=== PATIENT | female | born 1955 | race Caucasian/White ===

== ENCOUNTER 2022-01-19 13:20 | Inpatient (IN) | payer MEDICARE, OTHER ==
[~2022-01-19] VITALS: Ht 162.6 cm; Wt 46.3 kg
[2022-01-19 13:40] LABS: *BILIRUBIN,URIN NEGATIVE (NEGATIVE); *CLARITY,URINE CLEAR (CLEAR); *COLOR,URINE YELLOW (YELLOW); *KETONES,URINE NEGATIVE (NEGATIVE); *UROBILINOGEN,URINE 0.2 E.U./dl (NORMAL); HEMATOCRIT 44.7 % (31.2-41.9); LEUKOCYTE ESTERASE ,URINE TRACE (NEGATIVE); MEAN CORPUSCULAR HEMOGLOBIN 31.4 uug (24.7-32.8); MEAN CORPUSCULAR VOLUME 92.8 fL (75.5-95.3); NITRITE, URINE POSITIVE (NEGATIVE); PLATELET COUNT (AUTO) 267 K/uL (179-408); UGLUCOSE NEGATIVE (NEGATIVE)
[2022-01-19 13:43] LABS: *BLOOD, URINE TRACE (NEGATIVE)
[2022-01-19 13:46] LABS: CARBON DIOXIDE 32 mmol/L (21-32); CHLORIDE 102 mmol/L (98-107); CREATININE 0.9 mg/dL (0.6-1.3); GLUCOSE 86 mg/dL (74-106); POTASSIUM 3.4 mmol/L (3.5-5.1); UREA NITROGEN, BLOOD 13 mg/dL (7-18)
[2022-01-19 13:54] LABS: ALANINE AMINOTRANSFERASE 29 U/L (14-59); ALKALINE PHOSPHATASE 62 U/L (50-136); ASPARTATE AMINOTRANSFERASE 13 U/L (15-37); BILIRUBIN,DIRECT 0.1 mg/dL (0.0-0.2); BILIRUBIN,TOTAL 0.5 mg/dL (0.2-1.0); TOTAL PROTEIN, SERUM 7.8 g/dL (6.4-8.2)
[2022-01-19 13:56] LABS: ACETAMINOPHEN < 2.0 ug/mL (10-30)
[2022-01-19 13:57] LABS: ETHANOL < 3 MG/DL (0-0)
[2022-01-19 13:59] LABS: *AMPHETAMINE, URINE NEGATIVE (NEGATIVE); *CANNABINOID, URINE NEGATIVE (NEGATIVE); *COCCAINE, URINE NEGATIVE (NEGATIVE); *OPIATE, URINE NEGATIVE (NEGATIVE); *PHENCYCLIDINE SCREEN,URINE NEGATIVE (NEGATIVE)
[2022-01-19] MEDS ORDERED: OLANZAPINE 10 MG VIAL IM ONE ×2 (14:14→14:15)
[2022-01-19] MEDS ORDERED: CEphaleXIN 500 MG CAPSULE PO ONE (14:30)
[2022-01-19] MEDS ORDERED: CEphaleXIN 500 MG CAPSULE ONE (15:00)
[2022-01-19] MEDS ORDERED: MAGNESIUM HYDROXIDE 30 ML LIQUID UDC PO PRN (15:30)
[2022-01-19] MEDS ORDERED: ACETAMINOPHEN 325 MG TABLET PO PRN (15:30)
[2022-01-19] MEDS ORDERED: MAG HYDROX/AL HYDROX/SIMETH 30 ML LIQUID UDC PO PRN (15:30)
[2022-01-19 15:45] VITALS: BP 142/83
[2022-01-19 16:17] LABS: BACTERIA,URINE MANY /HPF (NONE SEEN); SQUAMOUS EPITHELIAL CELL,UR FEW /HPF (NONE SEEN)
[2022-01-19] MEDS: LORAZEPAM 0.5 MG TABLET PO PRN (21:20)
[2022-01-19] MEDS: CEphaleXIN 250 MG CAPSULE PO SCH (22:20)
[2022-01-19 22:33] VITALS: BP 130/60
[2022-01-20] MEDS: CEphaleXIN 250 MG CAPSULE PO SCH ×3 (06:14→21:11)
[2022-01-20 06:59] LABS: BILIRUBIN,TOTAL 0.8 mg/dL (0.2-1.0); POTASSIUM 4.2 mmol/L (3.5-5.1); TOTAL PROTEIN, SERUM 7.1 g/dL (6.4-8.2)
[2022-01-20 08:08] VITALS: BP 133/82
[2022-01-20] MEDS: LORAZEPAM 0.5 MG TABLET PO PRN ×2 (08:19→20:28)
[2022-01-20] MEDS ORDERED: SERTRALINE HCL 50 MG TABLET PO SCH (13:00)
[2022-01-20 16:04] VITALS: BP 143/75
[2022-01-20 20:11] VITALS: BP 131/74
[2022-01-20] MEDS: TEMAZEPAM 7.5 MG CAPSULE PO PRN (21:36)
[2022-01-21] MEDS: LORAZEPAM 0.5 MG TABLET PO PRN ×3 (01:46→17:50)
[2022-01-21] MEDS: CEphaleXIN 250 MG CAPSULE PO SCH ×3 (06:09→22:00)
[2022-01-21 07:57] VITALS: BP 135/82
[2022-01-21] MEDS: ENSURE WITH FIBER 237 ML LIQUID (CHOCOLATE) PO SCH (09:50)
[2022-01-21] MEDS: DIVALPROEX SPRINKLE 125 MG CAP.SPRINK PO SCH ×3 (11:41→22:00)
[2022-01-21 16:07] VITALS: BP 144/110
[2022-01-21] MEDS ORDERED: DIVALPROEX SPRINKLE 125 MG CAP.SPRINK PO SCH (17:00)
[2022-01-21] MEDS ORDERED: QUETIAPINE FUMARATE 25 MG TABLET PO PRN (21:15)
[2022-01-22] MEDS: CEphaleXIN 250 MG CAPSULE PO SCH (06:00)
[2022-01-22 07:55] VITALS: BP 149/86
[2022-01-22] MEDS: DIVALPROEX SPRINKLE 125 MG CAP.SPRINK PO SCH ×3 (09:02→20:30)
[2022-01-22] MEDS: ENSURE WITH FIBER 237 ML LIQUID (CHOCOLATE) PO SCH (09:03)
[2022-01-22] MEDS: QUETIAPINE FUMARATE 25 MG TABLET PO SCH (11:50)
[2022-01-22 16:41] VITALS: BP 115/71
[2022-01-22] MEDS: NITROFURANTOIN/NITROFURAN MAC 100 MG CAPSULE PO SCH (17:52)
[2022-01-22 20:00] VITALS: BP 135/85
[2022-01-22] MEDS ORDERED: QUETIAPINE FUMARATE 25 MG TABLET PO SCH (21:00)
[2022-01-22] MEDS: TEMAZEPAM 7.5 MG CAPSULE PO PRN (21:57)
[2022-01-23 07:49] VITALS: BP 136/67
[2022-01-23] MEDS: QUETIAPINE FUMARATE 25 MG TABLET PO SCH ×3 (08:48→20:33)
[2022-01-23] MEDS: DIVALPROEX SPRINKLE 125 MG CAP.SPRINK PO SCH ×3 (08:49→20:33)
[2022-01-23] MEDS: ENSURE WITH FIBER 237 ML LIQUID (CHOCOLATE) PO SCH (08:49)
[2022-01-23] MEDS: NITROFURANTOIN/NITROFURAN MAC 100 MG CAPSULE PO SCH ×2 (08:49→17:23)
[2022-01-23] MEDS: LORAZEPAM 0.5 MG TABLET PO PRN (15:18)
[2022-01-23 16:00] VITALS: BP 126/72
[2022-01-23 20:58] VITALS: BP 113/72
[2022-01-24 08:21] VITALS: BP 121/77
[2022-01-24] MEDS: DIVALPROEX SPRINKLE 125 MG CAP.SPRINK PO SCH ×3 (08:47→20:29)
[2022-01-24] MEDS: QUETIAPINE FUMARATE 25 MG TABLET PO SCH ×3 (08:47→20:29)
[2022-01-24] MEDS: NITROFURANTOIN/NITROFURAN MAC 100 MG CAPSULE PO SCH ×2 (08:47→17:50)
[2022-01-24] MEDS: ENSURE WITH FIBER 237 ML LIQUID (CHOCOLATE) PO SCH (08:47)
[2022-01-24 15:29] VITALS: BP 145/74
[2022-01-24] MEDS: LORAZEPAM 0.5 MG TABLET PO PRN (20:29)
[2022-01-24 22:19] VITALS: BP 140/90
[2022-01-25 07:54] VITALS: BP 133/71
[2022-01-25] MEDS: NITROFURANTOIN/NITROFURAN MAC 100 MG CAPSULE PO SCH ×2 (08:24→17:11)
[2022-01-25] MEDS: QUETIAPINE FUMARATE 25 MG TABLET PO SCH ×3 (08:24→21:00)
[2022-01-25] MEDS: DIVALPROEX SPRINKLE 125 MG CAP.SPRINK PO SCH ×3 (08:24→20:59)
[2022-01-25] MEDS: ENSURE WITH FIBER 237 ML LIQUID (CHOCOLATE) PO SCH (08:25)
[2022-01-25 16:50] VITALS: BP 137/79
[2022-01-25 19:55] VITALS: BP 111/75
[2022-01-26 07:53] VITALS: BP 118/64
[2022-01-26] MEDS: NITROFURANTOIN/NITROFURAN MAC 100 MG CAPSULE PO SCH ×2 (08:38→17:40)
[2022-01-26] MEDS: QUETIAPINE FUMARATE 25 MG TABLET PO SCH ×3 (08:38→20:07)
[2022-01-26] MEDS: DIVALPROEX SPRINKLE 125 MG CAP.SPRINK PO SCH ×3 (08:42→20:07)
[2022-01-26] MEDS: ENSURE WITH FIBER 237 ML LIQUID (CHOCOLATE) PO SCH (08:42)
[2022-01-26 16:10] VITALS: BP 126/62
[2022-01-26 20:20] VITALS: BP 128/62
[2022-01-26] MEDS: LORAZEPAM 0.5 MG TABLET PO PRN (21:40)
[2022-01-26] MEDS: TEMAZEPAM 7.5 MG CAPSULE PO PRN (22:46)
[2022-01-27 07:30] VITALS: BP 121/69
[2022-01-27] MEDS: DIVALPROEX SPRINKLE 125 MG CAP.SPRINK PO SCH ×3 (08:28→20:38)
[2022-01-27] MEDS: QUETIAPINE FUMARATE 25 MG TABLET PO SCH ×4 (08:28→20:38)
[2022-01-27] MEDS: NITROFURANTOIN/NITROFURAN MAC 100 MG CAPSULE PO SCH (08:28)
[2022-01-27] MEDS: ENSURE WITH FIBER 237 ML LIQUID (CHOCOLATE) PO SCH (08:29)
[2022-01-27 15:08] VITALS: BP 123/78
[2022-01-27] MEDS: LORAZEPAM 0.5 MG TABLET PO PRN (20:38)
[2022-01-27 21:09] VITALS: BP 135/68
[2022-01-28 07:01] LABS: HEMATOCRIT 38.9 % (31.2-41.9); MEAN CORPUSCULAR HEMOGLOBIN 31.8 uug (24.7-32.8); MEAN CORPUSCULAR VOLUME 92.1 fL (75.5-95.3); PLATELET COUNT (AUTO) 229 K/uL (179-408)
[2022-01-28 07:25] LABS: BILIRUBIN,TOTAL 0.4 mg/dL (0.2-1.0); CREATININE 0.7 mg/dL (0.6-1.3); POTASSIUM 4.1 mmol/L (3.5-5.1); TOTAL PROTEIN, SERUM 6.5 g/dL (6.4-8.2)
[2022-01-28 07:37] VITALS: BP 127/75
[2022-01-28] MEDS: QUETIAPINE FUMARATE 25 MG TABLET PO SCH ×4 (09:03→20:45)
[2022-01-28] MEDS: DIVALPROEX SPRINKLE 125 MG CAP.SPRINK PO SCH ×3 (09:03→18:23)
[2022-01-28] MEDS: ENSURE WITH FIBER 237 ML LIQUID (CHOCOLATE) PO SCH (09:03)
[2022-01-28 15:22] VITALS: BP 135/86
[2022-01-28 20:00] VITALS: BP 131/77
[2022-01-28] MEDS: TEMAZEPAM 7.5 MG CAPSULE PO PRN ×2 (20:45→21:55)
[2022-01-29 07:53] VITALS: BP 124/66
[2022-01-29] MEDS: QUETIAPINE FUMARATE 25 MG TABLET PO SCH ×4 (09:05→21:21)
[2022-01-29] MEDS: DIVALPROEX SPRINKLE 125 MG CAP.SPRINK PO SCH ×3 (09:05→17:21)
[2022-01-29] MEDS: ENSURE WITH FIBER 237 ML LIQUID (CHOCOLATE) PO SCH (09:05)
[2022-01-29 16:59] VITALS: BP 115/77
[2022-01-29 20:00] VITALS: BP 135/68
[2022-01-30 07:52] VITALS: BP 157/79
[2022-01-30] MEDS: QUETIAPINE FUMARATE 25 MG TABLET PO SCH ×4 (08:19→20:18)
[2022-01-30] MEDS: DIVALPROEX SPRINKLE 125 MG CAP.SPRINK PO SCH ×3 (08:20→17:20)
[2022-01-30] MEDS: ENSURE WITH FIBER 237 ML LIQUID (CHOCOLATE) PO SCH (08:21)
[2022-01-30 15:36] VITALS: BP 131/71
[2022-01-30 21:00] VITALS: BP 131/78
[2022-01-31 07:35] VITALS: BP 119/65
[2022-01-31] MEDS: DIVALPROEX SPRINKLE 125 MG CAP.SPRINK PO SCH ×3 (08:01→17:20)
[2022-01-31] MEDS: QUETIAPINE FUMARATE 25 MG TABLET PO SCH ×4 (08:01→20:44)
[2022-01-31] MEDS: ENSURE WITH FIBER 237 ML LIQUID (CHOCOLATE) PO SCH (08:02)
[2022-01-31 16:43] VITALS: BP 139/74
[2022-01-31 19:42] VITALS: BP 141/69
[2022-01-31] MEDS: TEMAZEPAM 7.5 MG CAPSULE PO PRN (22:52)
[2022-02-01 08:05] VITALS: BP 134/71
[2022-02-01] MEDS: ENSURE WITH FIBER 237 ML LIQUID (CHOCOLATE) PO SCH (08:24)
[2022-02-01] MEDS: DIVALPROEX SPRINKLE 125 MG CAP.SPRINK PO SCH ×3 (08:24→17:45)
[2022-02-01] MEDS: QUETIAPINE FUMARATE 25 MG TABLET PO SCH ×4 (08:24→20:28)
[2022-02-01 16:28] VITALS: BP 138/69
[2022-02-01 20:08] VITALS: BP 136/66
[2022-02-02 06:31] LABS: HEMATOCRIT 37.5 % (31.2-41.9); MEAN CORPUSCULAR HEMOGLOBIN 31.5 uug (24.7-32.8); MEAN CORPUSCULAR VOLUME 92.2 fL (75.5-95.3); PLATELET COUNT (AUTO) 225 K/uL (179-408)
[2022-02-02 06:49] LABS: BILIRUBIN,TOTAL 0.3 mg/dL (0.2-1.0); CREATININE 0.9 mg/dL (0.6-1.3); POTASSIUM 4.6 mmol/L (3.5-5.1); TOTAL PROTEIN, SERUM 6.2 g/dL (6.4-8.2)
[2022-02-02 07:43] VITALS: BP 132/65
[2022-02-02] MEDS: DIVALPROEX SPRINKLE 125 MG CAP.SPRINK PO SCH ×3 (08:41→16:25)
[2022-02-02] MEDS: ENSURE WITH FIBER 237 ML LIQUID (CHOCOLATE) PO SCH (08:41)
[2022-02-02] MEDS: QUETIAPINE FUMARATE 25 MG TABLET PO SCH ×4 (08:41→20:30)
[2022-02-02] MEDS: LORAZEPAM 0.5 MG TABLET PO PRN (13:41)
[2022-02-02 16:12] VITALS: BP 109/63
[2022-02-02 20:08] VITALS: BP 124/64
[2022-02-03 07:30] VITALS: BP 111/68
[2022-02-03] MEDS: DIVALPROEX SPRINKLE 125 MG CAP.SPRINK PO SCH ×2 (09:08→13:58)
[2022-02-03] MEDS: ENSURE WITH FIBER 237 ML LIQUID (CHOCOLATE) PO SCH (09:09)
[2022-02-03] MEDS: QUETIAPINE FUMARATE 25 MG TABLET PO SCH ×2 (09:09→13:58)
[2022-02-03] MEDS: LORAZEPAM 0.5 MG TABLET PO PRN (13:58)
[2022-02-03] MEDS ORDERED: ENSURE WITH FIBER 237 ML LIQUID (CHOCOLATE) PO SCH (17:00)
== END 2022-02-03 14:50 | DRG 885 ==
LOC: ER 13:20 → GPS 14:48
PROVIDERS: ADMIT Psychiatry & Neurology Psychosomatic Medicine; ATTEND Nurse Practitioner Acute Care
DX: F31.9 Bipolar disorder, unspecified (principal); F01.50 Vascular dementia, unspecified severity, without behavioral disturbance, psychotic disturbance, mood disturbance, and anxiety; N39.0 Urinary tract infection, site not specified; R45.851 Suicidal ideations; F41.0 Panic disorder [episodic paroxysmal anxiety]; Z20.822 Contact with and (suspected) exposure to COVID-19; Z87.440 Personal history of urinary (tract) infections; F41.9 Anxiety disorder, unspecified; Z73.6 Limitation of activities due to disability; B96.20 Unspecified Escherichia coli [E. coli] as the cause of diseases classified elsewhere
CPT/HCPCS: 36415; 80164; 84484; 85025; 87077; 87086; 93005; 97161; A4663; G0480; J2358